=== PATIENT | female | born 1945 | race Caucasian/White ===

== ENCOUNTER → 2018-09-13 | Outpatient (CLI) | payer MEDICARE ==
[~2018-09-13] MED LIST: REGADENOSON 0.4 MG/5 ML SYRINGE ONE
== END | disposition home or self-care (01) ==
LOC: CFH 07:37
PROVIDERS: ATTEND Internal Medicine Cardiovascular Disease
DX: I21.09 ST elevation (STEMI) myocardial infarction involving other coronary artery of anterior wall (principal); I25.9 Chronic ischemic heart disease, unspecified; I10 Essential (primary) hypertension; E11.9 Type 2 diabetes mellitus without complications
CPT/HCPCS: 78452; 93017; A9502; J2785

== ENCOUNTER 2018-09-21 11:02 | Observation (INO) | payer MEDICARE ==
[~2018-09-21] VITALS: Ht 170.2 cm; Wt 91.5 kg
[2018-09-21] MEDS ORDERED: SODIUM CHLORIDE 0.9% 1,000 ML IV ONE (11:18)
[2018-09-21 12:04] VITALS: BP 169/76
[2018-09-21 12:04] LABS: BASOPHILS # (AUTO) 0.02 x10^3/uL (0-0.1); BASOPHILS % (AUTO) 0 % (0-1); EOSINOPHILS # (AUTO) 0.12 x10^3/uL (0-0.4); EOSINOPHILS % (AUTO) 2 % (1-7); LYMPHOCYTES # (AUTO) 1.48 x10^3/uL (1-3.4); LYMPHOCYTES % (AUTO) 25 % (22-44); MD NO; MEAN CORPUSCULAR HEMOGLOBIN 30.9 pg (27.0-34.8); MEAN PLATELET VOLUME 9.4 fL (7.4-10.4); MONOCYTES # (AUTO) 0.52 x10^3/uL (0.2-0.8); MONOCYTES % (AUTO) 9 % (2-9); NEUTROPHILS # (AUTO) 3.85 x10^3/uL (1.8-6.8); NEUTROPHILS % (AUTO) 64 % (42-75); PLATELET COUNT 210 x10^3/uL (130-400); RED BLOOD COUNT 4.17 x10^6/uL (3.82-5.3); RED CELL DISTRIBUTION WIDTH 13.7 % (9.6-15.2)
[2018-09-21] MEDS ORDERED: METF10007 PO (12:12)
[2018-09-21] MEDS ORDERED: METO25TA91 PO (12:13)
[2018-09-21 12:14] LABS: ANION GAP 9 mmol/L (5-15); CALCIUM 8.7 mg/dL (8.5-10.1); CHLORIDE 108 mmol/L (98-107); CREATININE 0.77 mg/dL (0.55-1.02)
[2018-09-21] MEDS ORDERED: ASPI-515 PO (12:14)
[2018-09-21] MEDS ORDERED: SITA100T PO (12:14)
[2018-09-21] MEDS ORDERED: OLME20TA27 PO (12:15)
[2018-09-21 12:21] LABS: TROPONIN I 0.025 ng/mL (0.000-0.045)
[2018-09-21] MEDS ORDERED: LIDOCAINE 1%, 20ML ONE (12:23)
[2018-09-21] MEDS ORDERED: MIDAZOLAM 1 MG/ML, 5ML ONE (12:23)
[2018-09-21] MEDS ORDERED: HEPARIN 1,000 UNITS/ML, 10ML ONE (12:23)
[2018-09-21] MEDS ORDERED: VERAPAMIL 2.5 MG/ML, 2ML ONE (12:23)
[2018-09-21] MEDS ORDERED: FENTANYL PF 100 MCG/2ML ONE (12:23)
[2018-09-21] MEDS ORDERED: LIDOCAINE 2%, 20ML ONE (12:24)
[2018-09-21] MEDS ORDERED: TICAGRELOR 90 MG TABLET ONE (12:37)
[2018-09-21] MEDS ORDERED: BIVALIRUDIN 250 MG ONE (12:38)
[2018-09-21] MEDS: SODIUM CHLORIDE 0.9% 1,000 ML IV SCH ×3 (13:29→21:29)
[2018-09-21 14:27] VITALS: BP 139/76
[2018-09-21] MEDS ORDERED: hydrALAzine 20 MG/ML, 1ML ONE (15:19)
[2018-09-21] MEDS ORDERED: hydrALAzine 20 MG/ML, 1ML IV PRN (15:30)
[2018-09-21] MEDS: INSULIN LISPRO 100 UNITS/ML, PEN SQ-INSULIN SCH ×2 (15:33→20:35)
[2018-09-21] MEDS ORDERED: LABETALOL 5MG/ML, 20ML ONE (16:28)
[2018-09-21] MEDS ORDERED: LABETALOL 5MG/ML, 20ML IVPush ONE (16:30)
[2018-09-21] MEDS ORDERED: ONDANSETRON 2MG/ML, 2ML ONE (17:07)
[2018-09-21] MEDS ORDERED: ONDANSETRON 2MG/ML, 2ML IVPush PRN (17:30)
[2018-09-21] MEDS ORDERED: LOSARTAN 50MG TABLET PO ONE (18:00)
[2018-09-21] MEDS ORDERED: SODIUM CHLORIDE 0.9%, 250ML IVBOLUS ONE (18:00)
[2018-09-21] MEDS ORDERED: GADOBUTROL 10 MMOL/10 ML PFS ONE (18:31)
[2018-09-21] MEDS ORDERED: PROCHLORPERAZINE 5 MG/ML, 2ML IVPush PRN ×3 (19:30→19:40)
[2018-09-21 20:06] VITALS: BP 153/81
[2018-09-21] MEDS: TICAGRELOR 90 MG TABLET PO SCH (20:28)
[2018-09-21] MEDS ORDERED: NAPROXEN 500 MG TABLET PO ONE (20:30)
[2018-09-21 20:37] VITALS: BP 133/74
[2018-09-21] MEDS: AMLODIPINE 2.5 MG TABLET PO SCH (20:53)
[2018-09-21] MEDS ORDERED: metFORMIN 500 MG TABLET PO SCH (21:00)
[2018-09-22 01:33] VITALS: BP 135/76
[2018-09-22 04:42] LABS: BASOPHILS % (AUTO) 0 % (0-1); EOSINOPHILS # (AUTO) 0.01 x10^3/uL (0-0.4); EOSINOPHILS % (AUTO) 0 % (1-7); LYMPHOCYTES # (AUTO) 1.07 x10^3/uL (1-3.4); LYMPHOCYTES % (AUTO) 10 % (22-44); MD NO; MEAN CORPUSCULAR HEMOGLOBIN 30.7 pg (27.0-34.8); MEAN CORPUSCULAR HGB CONC 33.7 g/dL (32.4-35.8); MEAN CORPUSCULAR VOLUME 91.1 fL (80-100); MEAN PLATELET VOLUME 9.6 fL (7.4-10.4); MONOCYTES # (AUTO) 0.75 x10^3/uL (0.2-0.8); MONOCYTES % (AUTO) 7 % (2-9); NEUTROPHILS # (AUTO) 8.87 x10^3/uL (1.8-6.8); NEUTROPHILS % (AUTO) 83 % (42-75); PLATELET COUNT 202 x10^3/uL (130-400); RED BLOOD COUNT 4.12 x10^6/uL (3.82-5.3); RED CELL DISTRIBUTION WIDTH 13.6 % (9.6-15.2)
[2018-09-22] MEDS: SODIUM CHLORIDE 0.9% 1,000 ML IV SCH ×3 (04:44→11:35)
[2018-09-22 04:48] LABS: ANION GAP 11 mmol/L (5-15); CALCIUM 8.2 mg/dL (8.5-10.1); CHLORIDE 105 mmol/L (98-107); CREATININE 0.72 mg/dL (0.55-1.02)
[2018-09-22] MEDS ORDERED: MAGNESIUM SULFATE PMX 2GM/50ML 50 ML IV ONE ×3 (05:30→07:30)
[2018-09-22] MEDS ORDERED: POTASSIUM CHLORIDE 20 MEQ TAB.ER.PRT PO ONE ×2 (05:30→12:00)
[2018-09-22] MEDS: INSULIN LISPRO 100 UNITS/ML, PEN SQ-INSULIN SCH ×3 (07:00→16:00)
[2018-09-22 07:12] VITALS: BP 124/73
[2018-09-22] MEDS: TICAGRELOR 90 MG TABLET PO SCH (08:39)
[2018-09-22] MEDS: AMLODIPINE 2.5 MG TABLET PO SCH (08:40)
[2018-09-22] MEDS ORDERED: ASPIRIN 81 MG TABLET EC PO SCH ×2 (09:00)
[2018-09-22] MEDS ORDERED: LOSARTAN 50MG TABLET PO SCH (09:00)
[2018-09-22] MEDS ORDERED: LINAGLIPTIN 5 MG TAB PO SCH (09:00)
[2018-09-22] MEDS ORDERED: METOPROLOL SUCCINATE 25 MG TAB.ER.24H PO SCH (09:00)
[2018-09-22] MEDS ORDERED: LISINOPRIL 10 MG TABLET PO SCH (09:00)
[2018-09-22 14:44] VITALS: BP 137/73
[2018-09-22] MEDS ORDERED: CLOP75TA52 PO (16:06)
[2018-09-22] MEDS ORDERED: ASPI-650 PO (16:06)
[2018-09-23] MEDS ORDERED: ATOR20TA PO (11:14)
== END 2018-09-22 18:14 | disposition home or self-care (01) ==
LOC: CACL 11:02 → ORIP 13:29 → CACL 13:29 → 5SO 13:53
PROVIDERS: ADMIT Internal Medicine Cardiovascular Disease; ATTEND Internal Medicine Cardiovascular Disease
DX: I25.10 Atherosclerotic heart disease of native coronary artery without angina pectoris (principal); I10 Essential (primary) hypertension; E11.9 Type 2 diabetes mellitus without complications; E78.5 Hyperlipidemia, unspecified; G93.89 Other specified disorders of brain
CPT/HCPCS: 36415; 70450; 70553; 80048; 82962; 83735; 84484; 85025; 93458; 96365; 96366; 96375; 97162; 97166; 99156; 99157; A9585; C1725; C1769; C1874; C1887; C1894; C9600; G0378; G8978; G8979; G8980; J0360; J0583; J0780; J1644; J2250; J2405; J3010; J3475; J3490; J7030; J7050; Q9967